=== PATIENT | male | born 1965 | race Caucasian/White ===

== ENCOUNTER 2018-06-04 08:18 | Outpatient (CLI) | payer OTHER, SELFPAY ==
[2018-06-04] VITALS (8 sets, daily range): BP systolic 93–112; BP diastolic 65–80; PULSE 64–79; RESP 14–18; TEMP 36.6; O2SAT 96–98
--- NOTE | 2018-06-04 08:20 | DI.RAD.S_ITS ---
PROCEDURE: PAIN C/T INTERLAMINAR INJECT INDICATIONS: RADICULOPATHY FINDINGS: Fluoroscopic spot filming was performed to verify placement of spinal needles at the C6-C7 level, as labeled on the films. Appropriate location(s) of the needle tip(s) was confirmed by injection of iodinated contrast. IMPRESSION: Successful dorsal epidural needle tip localization for C6-C7 midline epidural steroid injection. Dictated by: Allan Fernandes M.D. on 06/04/2018 at 10:12 Approved by: Allan Fernandes M.D. on 06/04/2018 at 10:13
[2018-06-04] MEDS: MIDAZOLAM 5 MG/5 ML VIAL IV (09:12)
[2018-06-04] MEDS: LIDOCAINE 1% 20 ML INJ 5 ML INJ (09:19)
[2018-06-04] MEDS: IOPAMIDOL 15 ML VIAL 3 ML INJ (09:19)
[2018-06-04] MEDS: DEXAMETHASONE 10 MG/ML VIAL 20 MG INJ (09:20)
--- NOTE | 2018-06-04 09:23 | PC.NURSE ---
ASSISTING PT OFF TABLE AND TRANSPORTING TO POST PROC AREA IN STABLE CONDITION.
--- NOTE | 2018-06-04 09:32 | PM.PROC.1 ---
Procedures Date/Time Date of procedure: 06/04/18 Time of procedure: 09:32 General Procedure description: PREOP DIAGNOSIS 1. CERVICAL STENOSIS, 2. CERVICAL HNP WITH UPPER EXTREMITY RADICULAR FEATURES, POST OP DIAGNOSIS 1. CERVICAL STENOSIS, 2. CERVICAL HNP WITH UPPER EXTREMITY RADICULAR FEATURES, PROCEDURES 1. FLUORSCOPICALLY GUIDED CONTRAST CONTROLLED INTERLAMINAR EPIDURAL STEROID INJECTION - C6/7 TL RICHARD PHYSICIAN: Jacky Tirado DO INDICATIONS: Arian is referred for treatment of Cervical HNP with Upper Extremity Paresthesias. FINDINGS Cervical Stenosis due to disc deterioration and nerve root irritation and nerve root irritation DESCRIPTION OF PROCEDURE Fluoroscopically guided, contrast-controlled C6/7 translaminar epidural steroid injection with conscious sedation. Following denial of allergy and review of potential side effects and complications, including, but not necessarily limited to, infection, allergic reaction, local tissue breakdown, temporary as well as permanent nerve injury, stroke, paralysis, and possible , the patient indicated that patient understood and agreed to proceed. An informed consent document was signed by the patient, witnessed by a nurse, and placed in the patient's chart. Additionally, other treatment options including modalities, medications, and physical therapy were reviewed with the patient. After review of previous anaesthesic history and IV conscious sedation the patient was deemed safe to proceed with todays procedure with IV conscious sedation as ASA class II designation. Safety time-out was performed to confirm patient ID, procedure to be performed and site of procedure. IV sedation was accomplished with a combination of 5mg of Versed administered by the RN after DO order, titrated to patient comfort during the course of the procedure while the patient remained responsive to all verbal commands. In the prone position, following sterile prep and drape of the cervical region, the C6/7 translaminar space was identified fluoroscopically. The skin was anesthetized via a 25-gauge 1.5-inch needle with 1% lidocaine solution. At this point, a 25-gauge, 2.5-inch short bevel spinal needle was atraumatically introduced and advanced under fluoroscopic guidance into epidural space at the C6/7 translaminar space. Depth was confirmed on lateral view. Radiological data, including multiple fluoroscopic views of the cervical spine, reveal a spinal needle at the C6/7 translaminar space. Lateral views then show placement of the needle in the epidural space. Subsequent views show contrast material flowing superiorly and inferiorly in the epidural space. DSA fluoroscopy with live contrast injection, once again, confirmed no vascular or intrathecal uptake. At this point, using loss of resistance technique with saline and air, the epidural space was entered. Following negative aspiration, injection of approximately 1.5 cc of Isovue-200 with live fluoroscopy in the AP view confirmed epidural flow in the epidural space without vascular or intrathecal uptake observed. Subsequently, a test dose of 1 cc of 1% lidocaine solution was injected and patient was observed for two minutes without signs or symptoms of complications, including abdominal pain, shortness of breath, bilateral upper or lower extremity weakness, nausea and vomiting, prior to steroid injection. At this point, 2cc or 20mg of dexamethasone was then injected without incident. The patient tolerated the procedure well without signs or symptoms of complications prior to being transferred to the recovery area for further monitoring, The patient was then transferred to the recovery area where they were observed for an appropriate period of time after the injection. The patient reported a VAS score of 6 prior to the procedure and a post-procedure VAS of 0. Total Fluoroscopy Time: 37.0 seconds Total Conscious Time: 24min POST OP INSTRUCTIONS The patient was provided a Pain Log to continue to record their response to the target-specific procedure prior to follow-up visit with the referring provider. Additionally, specific post-injection care instructions and a contact number to our office were provided if concerns arise regarding possible complications associated with the procedure are suspected. Jacky Tirado DO Complications: none
--- NOTE | 2018-06-04 10:06 | PC.NURSE ---
pt returned from procedure awake and alert. Able to move from W/C to chair with standby assist. Resumed monitoring from Jossie MEI.
== END 2018-06-04 09:50 ==
LOC: RAD 08:19
PROVIDERS: Visit Provider Physical Medicine & Rehabilitation
DX: M48.02 Spinal stenosis, cervical region (principal); M50.123 Cervical disc disorder at C6-C7 level with radiculopathy; R20.2 Paresthesia of skin
CPT/HCPCS: 62321; 99152; J1100; J2250; J3010

== ENCOUNTER 2018-09-04 07:10 | Outpatient (CLI) | payer OTHER, SELFPAY ==
[2018-09-04] VITALS (9 sets, daily range): BP systolic 103–121; BP diastolic 36–75; PULSE 55–63; RESP 16–20; TEMP 36.2; O2SAT 95–100
--- NOTE | 2018-09-04 07:16 | DI.RAD.S_ITS ---
PROCEDURE: PAIN C/T INTERLAMINAR INJECT INDICATIONS: RADICULOPATHY FINDINGS: Fluoroscopic spot filming was performed to verify placement of spinal needles at the C6-C7 level(s), as labeled on the films. Appropriate location(s) of the needle tip(s) was confirmed by injection of iodinated contrast. Dictated by: Joseph Wallace M.D. on 09/04/2018 at 9:23 Approved by: Joseph Wallace M.D. on 09/04/2018 at 9:24
--- NOTE | 2018-09-04 08:22 | PM.PROC.1 ---
Procedures Date/Time Date of procedure: 09/04/18 Time of procedure: 08:22 General Procedure description: PREOP DIAGNOSIS 1. CERVICAL STENOSIS, 2. CERVICAL HNP WITH UPPER EXTREMITY RADICULAR FEATURES, POST OP DIAGNOSIS 1. CERVICAL STENOSIS, 2. CERVICAL HNP WITH UPPER EXTREMITY RADICULAR FEATURES, PROCEDURES 1. FLUORSCOPICALLY GUIDED CONTRAST CONTROLLED INTERLAMINAR EPIDURAL STEROID INJECTION - C6/7 TL RICHARD PHYSICIAN: Jacky Tirado, DO INDICATIONS Arian is referred for treatment of Cervical HNP with Upper Extremity Paresthesias. FINDINGS Cervical Stenosis due to disc deterioration and nerve root irritation and nerve root irritation DESCRIPTION OF PROCEDURE Fluoroscopically guided, contrast-controlled C6/7 translaminar epidural steroid injection with conscious sedation. Following review of allergy and review of potential side effects and complications, including, but not necessarily limited to, infection, allergic reaction, local tissue breakdown, temporary as well as permanent nerve injury, stroke, paralysis, and possible , the patient indicated that patient understood and agreed to proceed. An informed consent document was signed by the patient, witnessed by a nurse, and placed in the patient's chart. Additionally, other treatment options including modalities, medications, and physical therapy were reviewed with the patient. After review of previous anaesthesic history and IV conscious sedation the patient was deemed safe to proceed with todays procedure with IV conscious sedation as ASA class II designation. Safety time-out was performed to confirm patient ID, procedure to be performed and site of procedure. IV sedation was accomplished with a combination of 3mg of Versed and 50 mg of fentanyl administered by the RN after DO order, titrated to patient comfort during the course of the procedure while the patient remained responsive to all verbal commands. In the prone position, following sterile prep and drape of the cervical region, the C6/7 translaminar space was identified fluoroscopically. The skin was anesthetized via a 25-gauge 1.5-inch needle with 1% lidocaine solution. At this point, a 25-gauge, 2.5-inch short bevel spinal needle was atraumatically introduced and advanced under fluoroscopic guidance into epidural space at the C6/7 translaminar space. Depth was confirmed on lateral view. Radiological data, including multiple fluoroscopic views of the cervical spine, reveal a spinal needle at the C6/7 translaminar space. Lateral views then show placement of the needle in the epidural space. Subsequent views show contrast material flowing superiorly and inferiorly in the epidural space. DSA fluoroscopy with live contrast injection, once again, confirmed no vascular or intrathecal uptake. At this point, using loss of resistance technique with saline and air, the epidural space was entered. Following negative aspiration, injection of approximately 1.5 cc of Isovue-200 with live fluoroscopy in the AP view confirmed epidural flow in the epidural space without vascular or intrathecal uptake observed. Subsequently, a test dose of 1 cc of 1% lidocaine solution was injected and patient was observed for two minutes without signs or symptoms of complications, including abdominal pain, shortness of breath, bilateral upper or lower extremity weakness, nausea and vomiting, prior to steroid injection. At this point, 2cc or 30mg of dexamethasone was then injected without incident. The patient tolerated the procedure well without signs or symptoms of complications prior to being transferred to the recovery area for further monitoring, The patient was then transferred to the recovery area where they were observed for an appropriate period of time after the injection. The patient reported a VAS score of 6 prior to the procedure and a post-procedure VAS of 0. Total Fluoroscopy Time: 37.0 seconds Total Conscious Time: 24min POST OP INSTRUCTIONS The patient was provided a Pain Log to continue to record their response to the target-specific procedure prior to follow-up visit with the referring provider. Additionally, specific post-injection care instructions and a contact number to our office were provided if concerns arise regarding possible complications associated with the procedure are suspected. Jacky Tirado DO Complications: none
[2018-09-04] MEDS: fentaNYL 100 MCG/2 ML INJ 50 MCG IV (08:30)
[2018-09-04] MEDS: MIDAZOLAM 5 MG/5 ML VIAL IV (08:30)
--- NOTE | 2018-09-04 08:38 | PC.NURSE ---
pt tolerated procedure well. Pt able to get off table with standby assist. Transferred pt via wheelchair to pre procedure room for continued monitoring with Sharifa MEI.
--- NOTE | 2018-09-04 08:47 | PC.NURSE ---
Patient returns from procedure room A/O and able to transfer self from WC to chair independently
[2018-09-04] MEDS: DEXAMETHASONE 10 MG/ML VIAL 30 MG INJ (08:48)
[2018-09-04] MEDS: LIDOCAINE 1% 20 ML INJ 5 ML INJ (08:48)
[2018-09-04] MEDS: IOPAMIDOL 15 ML VIAL 3 ML INJ (08:48)
== END 2018-09-04 09:14 ==
LOC: RAD 07:12
PROVIDERS: Visit Provider Physical Medicine & Rehabilitation
DX: M48.02 Spinal stenosis, cervical region (principal); M50.123 Cervical disc disorder at C6-C7 level with radiculopathy
CPT/HCPCS: 62321; 99152; J1100; J2250; J3010

== ENCOUNTER 2019-02-05 06:16 | Inpatient (IN) | payer OTHER, SELFPAY ==
[2019-01-27 12:51] VITALS: BMI 29.7
[2019-02-05] VITALS (11 sets, daily range): BP systolic 105–147; BP diastolic 52–81; PULSE 67–87; RESP 14–17; TEMP 36.1–37; O2SAT 92–96; BMI 29.5
--- NOTE | 2019-02-05 | DI.RAD.S_ITS ---
PROCEDURE: XR CERVICAL SPINE 2V OR 3V INDICATIONS: C5-6 C6-7 ANTERIOR DISCECTOMY W/ ART. DISC REPLACEMENT TECHNIQUE: 2 view(s) of the cervical spine were acquired. COMPARISON: [facility], XA, PAIN C/T INTERLAMINAR INJECT, 09/04/2018, 8:34. [facility], XA, PAIN C/T INTERLAMINAR INJECT, 06/04/2018, 9:17. FINDINGS: 2 intraoperative fluoroscopy images demonstrate discectomy and placement of disc prosthesis at C5-C6 and C6-C7. IMPRESSION: Discectomy at C5-C6 and C6-C7. Dictated by: Nichole Yu M.D. on 02/05/2019 at 10:31 Approved by: Nichole Yu M.D. on 02/05/2019 at 10:32
[2019-02-05] MEDS: LACTATED RINGERS 1,000 ML 84 ML IV ×2 (07:12→09:35)
--- NOTE | 2019-02-05 07:28 | PM.PREOP ---
Pre-operative Note Interval Note History & Physical reviewed/Exam performed by Physician: Yes Changes to H&P: No
[2019-02-05] MEDS: CEFAZOLIN 2 GM/100 ML FROZ.PIGGY IV (07:43)
--- NOTE | 2019-02-05 08:21 | SUR.OPER ---
Supine, head on gel donut. Arms padded with gel pads, tucked at sides, towel roll under shoulders. Safety belt at thigh. Legs uncrossed.
[2019-02-05] MEDS: BUPIVACAINE 0.25% W/ EPI (PF) 10 ML VIAL 20 ML INJ (08:31)
[2019-02-05] MEDS: THROMBIN (RECOMBINANT) 5,000 UNIT VIAL 5000 UNIT TOP (08:32)
[2019-02-05] MEDS: SODIUM CHLORIDE 0.9% 1,000 ML, GENTAMICIN 80 MG IRR (08:33)
--- NOTE | 2019-02-05 09:28 | P.OP_ITS ---
Operative Date/Time/Diagnoses Date of procedure: 02/05/19 Time of procedure: 09:28 Pre-op diagnosis: Cervical disc herniation with myelopathy Post-op diagnosis: same Procedure & Clinicians Procedure: C5-6, C6-7 anterior cervical diskectomy and artificial disc replacement Use of microscope Same procedure as scheduled: Yes Indications: [age] year old male with intractable pain from myelopathy. They had failed conservative management and requested operative intervention. Risks and benefits of surgery were discussed and appropriate consents were obtained. Surgeon: Bentley Silva [employer] Reporter: Velia Wang Anesthesia Type: General Operative Notes Findings: None Closure Type: primary Specimen(s): none sent Prosthetic devices, grafts, tissues, transplants, or devices: Jacob Mobi-C Estimated Blood Loss (mL): 5 Blood products transfused: none Procedure in detail: Patient was brought to the operating room and intubated on the table. A time-out was performed. Preoperative antibiotics were given. The neck was prepped and draped in the standard sterile fashion. Using a skin fold, we made a 3 cm oblique incision on the left side. We used Bovie to go through the platysma and then did a standard anterolateral blunt dissection down to the precervical fascia. Fascia was nicked and elevated up. A marker was placed and x-ray was taken for localization. We then subperiosteally elevated up the longus colli muscles. Self-retaining retractors were placed. Macarthur pins were placed under x-ray guidance to be parallel to the endplates. We then brought in the microscope. A scalpel used to perform an annulotomy. We then used a combination of pituitaries and curettes and Kerrison to perform a complete anterior diskectomy at C5-6. We took down the PLL and used Kerrison to remove any posterior disc material and osteophytes. At the end we could from the nerve hook cephalad caudally and out the foramen and everything was opened. We distracted open with the parallel division toll wire chief. We then used the horseshoes for sizing. We then used the trials. We then inserted a 15 x 17 x 5 mm size Mobi-C artificial disc replacement under fluoroscopic guidance for positioning. The traction was released and x-ray was checked again. We then moved down to C6-7 with our retractors. We then used a combination of pituitaries and curettes and Kerrison to perform a complete anterior diskectomy at C6-7. We took down the PLL and used Kerrison to remove the posterior disc material and osteophytes. At the end we could from the nerve hook cephalad caudally and out the foramen and everything was opened. We distracted open with the parallel division toll wire chief. We then used the horseshoes for sizing. We then used the trials. We then inserted a 15 x 17 x 6 mm size Mobi-C artificial disc replacement under fluoros copic guidance for positioning. The traction was released and x-ray was checked again. The self-retaining retractors and Macarthur pins were removed and final x- rays taken. The wound was irrigated. There was no bleeding. The carotid was beating nicely. The platysma was closed. The superficial was closed. The skin was closed. A sterile dressing was placed. They were then extubated and brought to recovery room with no complications. Complications: none Post-operative Condition: stable Disposition: PACU Plan for aftercare: Overnight admission. Up with physical therapy.
[2019-02-05] MEDS: HYDROMORPHONE 2 MG INJ IV ×4 (10:00→10:15)
--- NOTE | 2019-02-05 10:14 | SUR.PHASEI ---
Anesthesia at bedside at this time and administered .5mg dilauded from anesthesia supply.
--- NOTE | 2019-02-05 10:22 | SUR.PHASEI ---
Pt. refusing Vistaril IM at this time, feels (the pt.) that the IV dilauded is doing a good job, I already feel dopey now, this author educated pt. that the vistaril IM is not a narcotic and would benefit the pt. along with the narcotic already given. Pt. refusing the vistaril at this time.
--- NOTE | 2019-02-05 10:35 | SUR.PHASEI ---
Pt. sitting up at 80 degrees having some applesauce.
[2019-02-05] MEDS: HYDROCODONE/ACET 5/325 TABLET 1 TAB PO (10:37)
[2019-02-05] MEDS: LACTATED RINGERS 1,000 ML 125 ML IV (12:25)
--- NOTE | 2019-02-05 13:53 | PM.PNPO.1 ---
Subjective Subjective Date Patient Seen: 02/05/19 Time Patient Seen: 13:53 Interval history: He is doing great. No more arm pain. Has already had lunch. No difficulty swallowing.. Pain well-controlled with 1 Vicodin 3 hours ago. Exam Vital Signs (past 8 hours): - 02/05/19 06:57 02/05/19 09:49 02/05/19 09:55 Temperature 97.2 F L 96.9 F L Pulse Rate 67 79 80 Respiratory Rate 15 16 17 Blood Pressure 122/76 105/52 L 112/70 Pulse Oximetry 93 95 95 02/05/19 10:00 02/05/19 10:15 02/05/19 10:30 Temperature 97.0 F L Pulse Rate 77 71 68 Respiratory Rate 17 17 17 Blood Pressure 116/71 121/81 122/81 Pulse Oximetry 95 95 95 02/05/19 10:50 02/05/19 11:20 02/05/19 11:50 Temperature 97.9 F 97.9 F Pulse Rate 73 67 73 Respiratory Rate 14 14 14 Blood Pressure 147/62 H 125/77 119/71 Pulse Oximetry 92 93 95 Oxygen Delivery Method Room Air Oxygen Flow Rate 1 Const Orientation: alert and oriented x3 Back/Spine/Pelvis Other: CDI. 5/5 motor both upper extremities Assessment & Plan Post-op Postoperative Procedures: Procedures Operation Date: 02/05/19 07:45 Actual Procedures Side Surgeon p C56 & C67 anterior discectomy & artificial disc replacement Bentley Silva MD he is doing great. He wants to go home today. Plan for discharge.
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
[2019-02-05] MEDS: DEXAMETHASONE 4 MG/ML VIAL IV (14:59)
--- NOTE | 2019-02-05 15:59 | PC.NURSE ---
DC call to office and spoke with nailer hand who verified DC instruction that pt may remove bulky dressing in 4 days but to continue to keep shower spray off of surgical site. Pt sent home with additional gauze and tegaderm dressing incase needed/wanted after surgical dressing removed.
== END 2019-02-05 15:45 | disposition home or self-care (01) | DRG 518 ==
PROVIDERS: Admitting Provider Orthopaedic Surgery; Visit Provider Orthopaedic Surgery
PROC: 0RR30JZ Replacement of Cervical Vertebral Disc with Synthetic Substitute, Open Approach (ICD-10-PCS; principal; 2019-02-05 07:45)
DX: M50.022 Cervical disc disorder at C5-C6 level with myelopathy (principal); R00.2 Palpitations
CPT/HCPCS: 72040; 76000; 97161; C1776; J0330; J0690; J1100; J1170; J2405; J2704; J3010